=== PATIENT | male | born 1960 | race Caucasian/White ===

== ENCOUNTER 2016-08-09 20:38 | Emergency (ER) | payer BC, OTHER ==
[~2016-08-09] VITALS: Ht 177.8 cm; Wt 92.9 kg
[~2016-08-09 20:38] MED LIST: IBUP600T44 PO; LEVO75TA36 PO; OXYC-57 PO; ZCRUNK PO
[2016-08-09 20:40] VITALS: TEMP 36.7; Ht 177.8 cm; Wt 92.9 kg
[2016-08-09] MEDS ORDERED: CEPHALEXIN MONOHYDRATE 250 MG CAP PO ONE (21:00)
[2016-08-09] MEDS ORDERED: CEPHALEXIN 500MG HOME PACK 1 EA BTL PO ONE (21:00)
[2016-08-09] MEDS ORDERED: CEPH500C PO (21:08)
--- NOTE | 2016-08-09 21:09 | EMERGENCY ROOM VISIT NOTE ---
ED Visit Note First contact with patient: 20:44 Chief Complaint: LEFT Thumb Laceration History of Present Illness: This patient is a 56-year-old male who presents to the Emergency Department this evening for evaluation of their LEFT Thumb laceration. Patient sustained the laceration while using a utility knife on Friday evening. He reports that there has been persistent opening of the wound despite many dressing changes. He denies any significant bleeding. They deny any numbness or tingling into the distal extremity. They report no decreased range of motion of the affected digit. They have tried nothing for the pain. Patient rates his current discomfort as a 0/10. Patient's Tetanus status is currently up-to-date. Medications: Reviewed and discussed with the patient. Allergies: No known allergies. PMH: No pertinent past history. SHx: Patient is a 56-year-old male who lives locally. ROS: All pertinent positive and negative review of systems are appropriately documented in the History of Present Illness. Physical Exam: VITAL SIGNS - Vital signs and nursing notes were reviewed. GENERAL - 56-year-old male appearing his stated age who is in no acute distress. Communicates well with provider and answers questions appropriately. SKIN - There is a 3.0 cm long flap laceration noted to the radial surface of the LEFT Thumb. The edges flap apart with traction. No foreign bodies appreciated. Upon further examination there are no deep structures including vessel, tendon, or bony structures appreciated. There is no active bleeding noted. MUSCULOSKELETAL - Laceration as described above. +5/5 strength appreciated of the affected digit. Full range of motion of the affected digit. NEUROLOGIC - Spinothalamic tract was found to be intact with ability to discriminate sharp versus dull sensation. No sensory defects of the dorsal column were appreciated utilizing light touch for evaluation. VASCULAR - Capillary refill was brisk. ED Course: Patient was seen and evaluated by myself. I had a lengthy discussion with the patient regarding contraindications to wound closure. The patient is 5 days out from his initial injury. Suture repair is not indicated. The patient does have a flap laceration. The area was cleansed with Betadine and normal saline. The area was Steri-Stripped loosely close. The patient was provided initial dose of Keflex orally in the emergency department. He will replace a short course to help prevent the development of infection. He was provided a metal splint for comfort. He was educated on worrisome symptoms for return visit to the emergency department. Patient discharged home in good condition. In the evaluation and treatment of this patient, the following differential diagnoses were considered: Cellulitis, dermatitis, foreign body, osteomyelitis, amongst others. Impression: LEFT Thumb Laceration with Delay in Closure Discharge Instructions: You've been seen in the emergency department today for a laceration of the LEFT thumb. Look for signs of infection of the wound including: increased pain, swelling, foul discharge, streaking, or increased temperature. If any of these are noticed you should return to the Emergency Department for further assessment and treatment. Use the splint for comfort for the next several days until the skin has healed. As with any laceration you may have received nerve damage to the surrounding tissues. This damage may or may not be permanent. You should keep the area covered with sunscreen for the first 6 months to 1 year when at risk for exposure to help minimize scarring. You can also use scar reducing creams or Vitamin E oil to help minimize scarring. You were prescribed Keflex to be taken as prescribed. This is an antibiotic. All antibiotics have the potential to cause diarrhea. Stop this medication and contact a medical provider if you were to develop any significant adverse side effects including: wheezing, shortness of breath, passing out, vomiting, or a diffuse rash. Always take antibiotics as directed and COMPLETE the ENTIRE course regardless of the improvement of your symptoms. For pain control, you can use the following [id number] medicines (if >12 yo): - Regular strength (325mg/tab) Tylenol (acetaminophen) 2 tabs every 4-6 hours as needed. Do not exceed 12 tablets in a 24 hour period. Avoid taking more than 4 grams (4000 mg) of Tylenol per day. This includes any other sources of acetaminophen you may take on a regular basis. - Regular strength (200 mg/tab) Advil (ibuprofen) 1-2 tabs every 4-6 hours as needed. Do not exceed a dose of 3200 mg per day. Return to the emergency department if your symptoms worsen despite treatment course outlined above. Current/Historical Medications Scheduled Cephalexin Monohydrate (Keflex), 500 MG PO QID Ibuprofen (Motrin), 600 MG PO Q6HR PRN Levothyroxine (Levothroid), 0.075 MG PO DAILY Simvastatin (Zocor Unkown Dose), 40 MG PO HS Allergies Coded Allergies: No Known Allergies (Unverified , 08/09/16) Vital Signs Date Time Temp Pulse Resp B/P Pulse Ox O2 Delivery O2 Flow Rate FiO2 08/09/16 21:17 81 20 132/85 96 08/09/16 20:40 36.7 93 16 143/96 98 Room Air Medications Administered Medications (Trade) Dose Ordered Sig/Cindi Route Start Time Stop Time Status Last Admin Dose Admin Cephalexin Monohydrate (Keflex 500MG Home Pack) 1 homepack NOW ONCE PO 08/09/16 21:00 08/09/16 21:01 DC 08/09/16 21:11 1 HOMEPACK Cephalexin Monohydrate (Keflex Cap) 500 mg NOW ONCE PO 08/09/16 21:00 08/09/16 21:01 DC 08/09/16 21:10 500 MG Departure Information Impression Primary Impression: Laceration of finger with delay in treatment Dispostion Home / Self-Care Condition GOOD Prescriptions Cephalexin Monohydrate (Keflex) 500 Mg Cap 500 MG PO QID for 5 Days, #20 CAP Prov: Troy Wagoner PA-C 08/09/16 Referrals Arnulfo Blackmon M.D.([facility]) (PCP) Patient Instructions My [facility] Additional Instructions You've been seen in the emergency department today for a laceration of the LEFT thumb. Look for signs of infection of the wound including: increased pain, swelling, foul discharge, streaking, or increased temperature. If any of these are noticed you should return to the Emergency Department for further assessment and treatment. Use the splint for comfort for the next several days until the skin has healed. As with any laceration you may have received nerve damage to the surrounding tissues. This damage may or may not be permanent. You should keep the area covered with sunscreen for the first 6 months to 1 year when at risk for exposure to help minimize scarring. You can also use scar reducing creams or Vitamin E oil to help minimize scarring. You were prescribed Keflex to be taken as prescribed. This is an antibiotic. All antibiotics have the potential to cause diarrhea. Stop this medication and contact a medical provider if you were to develop any significant adverse side effects including: wheezing, shortness of breath, passing out, vomiting, or a diffuse rash. Always take antibiotics as directed and COMPLETE the ENTIRE course regardless of the improvement of your symptoms. For pain control, you can use the following [id number] medicines (if >12 yo): - Regular strength (325mg/tab) Tylenol (acetaminophen) 2 tabs every 4-6 hours as needed. Do not exceed 12 tablets in a 24 hour period. Avoid taking more than 4 grams (4000 mg) of Tylenol per day. This includes any other sources of acetaminophen you may take on a regular basis. - Regular strength (200 mg/tab) Advil (ibuprofen) 1-2 tabs every 4-6 hours as needed. Do not exceed a dose of 3200 mg per day. Return to the emergency department if your symptoms worsen despite treatment course outlined above. Problem Qualifiers Primary Impression: Laceration of finger with delay in treatment Encounter type: initial encounter Qualified Codes: S61.219A - Laceration without foreign body of unspecified finger without damage to nail, initial encounter
[2016-08-09 21:17] VITALS: BP 132/85; PULSE 81; O2SAT 96
== END 2016-08-09 21:21 | disposition home or self-care (01) ==
LOC: C.EDB 20:38 → C.EDD 21:21
DX: S61.012A Laceration without foreign body of left thumb without damage to nail, initial encounter (principal); W26.0XXA Contact with knife, initial encounter